=== PATIENT | female | born 1995 | race Caucasian/White ===

== ENCOUNTER 2018-02-06 10:56 | Emergency (ER) | payer SELFPAY ==
[2018-02-06 11:11] VITALS: BP 125/77; PULSE 105; TEMP 98.5; BMI 20.7
--- NOTE | 2018-02-06 11:19 | PDOC ---
History of Present Illness - General Chief Complaint: Weakness Stated Complaint: FATIGUE/DIZZY - History of Present Illness Initial Comments: patient is a 22 year old female, with no significant pmh, who presents to the emergency department complaining of two weeks of fatigue. Pt states she has been persistently fatigued throughout the day for the past two weeks, occasionally becoming lightheaded at work and states she does not feel refreshed after sleeping, despite getting full 8 hours. Pt denies any CHARLES, f/c/n/ v/d, CP, sob, cough, ab pain, back pain, LE edema, hematuria, dysuria, melena, hematochezia. Pt also endorses two weeks of constipation and decreased PO intake. Pt states she has been sleeping well, exercises regularly. Pt states last period was one week ago, one day in duration with heavy flow and one week late, with no other findings. Pt states her periods are typically 5 days long, 3 days of heavy flow initially. Pt is sexually active with her male partner and does not use contraception. No prior hx of , tailings man conditions or UTIs. Pt with no history of anemia, hypothyroidism, anorexia, vitamin deficiency or metabolic disorders. Allergies: None Past surgical history: None Social History: Social drinker 2-3 drinks per week; Marijuana 1 cig per day on average; no cigarettes PMD: None 02/06/18 11:17 Past History - Past Medical History Allergies/Adverse Reactions: Allergies Allergy/AdvReac Type Severity Reaction Status Date / Time No Known Allergies Allergy Verified 02/06/18 11:09 COPD: No - Suicide/Smoking/Psychosocial Hx Smoking History: Never smoked Have you smoked in the past 12 months: No Information on smoking cessation initiated: No Hx Alcohol Use: No Drug/Substance Use Hx: No Substance Use Type: Marijuana Review of Systems - Review of Systems Comments:: GENERAL/CONSTITUTIONAL: No fever or chills. + two weeks of chronic fatigue HEAD, EYES, EARS, NOSE AND THROAT: No change in vision. No ear pain or discharge. No sore throat. CARDIOVASCULAR: No chest pain or shortness of breath RESPIRATORY: No cough, wheezing, or hemoptysis. GASTROINTESTINAL: No nausea, vomiting, diarrhea; + constipation GENITOURINARY: No dysuria, frequency, or change in urination. MUSCULOSKELETAL: No joint or muscle swelling or pain. No neck or back pain. SKIN: No rash NEUROLOGIC: No headache, vertigo, loss of consciousness, or change in strength/ sensation. ENDOCRINE: No increased thirst. No abnormal weight change HEMATOLOGIC/LYMPHATIC: No anemia, easy bleeding, or history of blood clots. ALLERGIC/IMMUNOLOGIC: No hives or skin allergy. 02/06/18 11:17 *Physical Exam - Vital Signs Last Vital Signs Temp Pulse Resp BP Pulse Ox 98.5 F 105 H 20 125/77 100 02/06/18 11:09 02/06/18 11:09 02/06/18 11:09 02/06/18 11:09 02/06/18 11:09 - Physical Exam Comments: GENERAL: Young thin woman, Awake, alert, and fully oriented, in no acute distress; HEAD: No signs of trauma, normocephalic, atraumatic EYES: PERRLA, EOMI, sclera anicteric, conjunctiva clear ENT: Auricles normal inspection, hearing grossly normal, nares patent, oropharynx clear without exudates. Moist mucosa NECK: Normal ROM, supple, no lymphadenopathy, JVD, or masses LUNGS: No distress, speaks full sentences, clear to auscultation bilaterally HEART: Regular rate and rhythm, normal S1 and S2, no murmurs, rubs or gallops, peripheral pulses normal and equal bilaterally. ABDOMEN: Mild discomfort with deep palpation in suprapubic region. Soft, nontender, normoactive bowel sounds. Voluntary guarding of suprapubic region, no rebound. No masses EXTREMITIES : Normal inspection, Normal range of motion, no edema. No clubbing or cyanosis. NEUROLOGICAL: Cranial nerves II through XII grossly intact. Normal speech, normal gait, no focal sensorimotor deficits SKIN: Warm, Dry, normal turgor, no rashes or lesions noted 02/06/18 11:18 ED Treatment Course - LABORATORY CBC & Chemistry Diagram: 02/06/18 12:00 02/06/18 12:00 Medical Decision Making - Medical Decision Making Patient is a 22 year old female, with no significant pmh, who presents to the emergency department complaining of two weeks of fatigue. Physical exam notable for suprapubic discomfort on deep palpation. DDX includes UTI, , anemia , vitamin deficiency, HIV, STI, poor sleep hygiene, decreased oral intake, stress-induced fatigue. Plan: - CBC, CMP - UA, GC/Chlamydia - Oraquick - U Preg - Will discharge home with referral for outpt PCP follow-up 02/06/18 11:56 All labs normal. UA, U-preg normal. Will discharge home with referral for outpt PCP. Counseled on diet, sleep hygiene. *DC/Admit/Observation/Transfer Diagnosis at time of Disposition: Fatigue Qualifiers: Fatigue type: unspecified Qualified Code(s): R53.83 - Other fatigue - Discharge Dispostion Disposition: HOME Condition at time of disposition: Good Decision to Admit order: No - Referrals Referrals: Cade Abraham MD [Staff Physician] - - Patient Instructions Additional Instructions: During your visit to the [facility] ED, you were evaluated for fatigue for the last two weeks. You received standard lab tests, urine studies and test, which were all unremarkable. You are being discharged home with outpatient follow-up with the resident clinic, coordinated by Dr. Cade Abraham. You are being provided a referral for follow-up with Dr. Abraham in the resident clinic for establishment of primary care. Please call the number provided in this packet to schedule an appointment within one week. If you experience any of the following symptoms, please return to the ED: - Persistent fevers/chills >3 days - Any blood in your stool, increased/irregular vaginal bleeding - Worsening, persistent abdominal or pelvic pain - Changes in vision, numbness/weakness in any extremities, or persistent dizziness/loss of consciousness - Any new or concerning symptoms - Post Discharge Activity Forms/Work/School Notes: Back to Work
--- NOTE | 2018-02-06 11:40 | PDOC ---
Attending Attestation - Resident Resident Name: Narendra Dove - ED Attending Attestation I have performed the following: I have examined & evaluated the patient, The case was reviewed & discussed with the resident, I agree w/resident's findings & plan, Exceptions are as noted - HPI HPI: 02/06/18 11:38 22y F no pmhx presents with fatigue/malaise x 2 weeks. States she is feeling lightheaded, generally weak, decreased appetitie and no improvement after sleeping. denies any associated f/c, headache, dizzines,s neck pain, back pain, abd pain, n/v, le edema, diarrhea, melena, bpr. on exam pt well appearing, in no distress abd: soft nontender card: rrr lungs cta b/l will ck basic labs to r/o anemia, metabolic dernagement, - Physicial Exam PE: 02/10/18 12:46 see above - Medical Decision Making 02/10/18 12:46 see [facility]ana
[2018-02-06 12:13] LABS: BASO % 0.4 % (0-2.0); EOS % 0.1 % (0-4.5); LYMPH % 20.9 % (8-40); MCH 31.8 pg (25.7-33.7); MCHC 33.3 g/dl (32.0-36.0); MEAN CELL VOLUME 95.4 fl (80-96); MONO % 3.6 % (3.8-10.2); PLATELET COUNT 325 K/MM3 (134-434); RDW 15.6 % (11.6-15.6); WHITE BLOOD COUNT 7.5 K/mm3 (4.0-10.0)
[2018-02-06 12:32] LABS: URINE APPEARANCE CLOUDY; URINE BILIRUBIN NEGATIVE (<2.0 mg/dL); URINE COLOR YELLOW; URINE GLUCOSE (UA) NEGATIVE (NEGATIVE); URINE KETONE NEGATIVE (NEGATIVE); URINE LEUK ESTERASE NEGATIVE (NEGATIVE); URINE NITRITE NEGATIVE (NEGATIVE); URINE PROTEIN NEGATIVE (NEGATIVE); URINE UROBILINOGEN NEGATIVE mg/dL (0.2-1.0)
[2018-02-06 12:39] LABS: HCG,QUALITATIVE URINE NEGATIVE
[2018-02-06 13:41] LABS: ALBUMIN 4.4 g/dl (3.4-5.0); ANION GAP 7 (8-16); BILIRUBIN,TOTAL 0.4 mg/dL (0.2-1.0); BLOOD UREA NITROGEN 11 mg/dL (7-18); CALCIUM 9.3 mg/dL (8.5-10.1); CHLORIDE 104 mmol/L (98-107); CO2 29 mmol/L (21-32); CREATININE 0.9 mg/dL (0.55-1.02); GLUCOSE,RANDOM 78 mg/dL (74-106); POTASSIUM 4.2 mmol/L (3.5-5.1); SGOT/AST 20 U/L (15-37); SGPT/ALT 30 U/L (12-78); SODIUM 140 mmol/L (136-145); TOT PROT 7.9 g/dl (6.4-8.2)
[2018-02-06 13:42] LABS: ALK PHOS 63 U/L (45-117)
== END 2018-02-06 14:15 | disposition home or self-care (01) ==
LOC: JER 10:56
DX: R53.83 Other fatigue (principal)
CPT/HCPCS: 36415; 80053; 81003; 84443; 84703; 85025; 87389; 87491; 87591; 99281-25